=== PATIENT | male | born 1950 | race Caucasian/White ===

== ENCOUNTER → 2017-08-31 | Outpatient (CLI) | payer OTHER | END | disposition home or self-care (01) | LOC: RADUSWWP 07:30 | DX: E80.7 Disorder of bilirubin metabolism, unspecified (principal); Z53.9 Procedure and treatment not carried out, unspecified reason ==

== ENCOUNTER → 2017-09-09 | Outpatient (CLI) | payer OTHER ==
--- NOTE | 2017-09-09 08:06 | US ---
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 EXAM MEASUREMENTS: Liver Length: 15.4 cm Gallbladder Wall: 0.2 cm CBD: 0.3 cm Right Kidney: 11.7 x 4.7 x 5.1 cm Extensive overlying midline bowel gas. Pancreas: Obscured by bowel gas Liver: portions of left lobe obscured by overlying bowel gas . Visualized portions appear homogeneou s in echotexture. Gallbladder: fundal portion partially obscured by overlying bowel gas, wnl as visualized Evidence for sonographic Garcia's sign: no CBD: wnl Right Kidney: wnl IMPRESSION: Exam is partially limited by overlying bowel gas. No sonographic evidence of cholelithias is or acute cholecystitis. No hydronephrosis or nephrolithiasis.
== END | disposition home or self-care (01) ==
LOC: RADUSWWP 06:45
DX: E80.7 Disorder of bilirubin metabolism, unspecified (principal)
CPT/HCPCS: 76705

== ENCOUNTER 2018-07-28 10:53 | Day surgery (SDC) | payer MEDICARE, OTHER ==
[2018-07-25 15:03] VITALS: BMI 27.1
[~2018-07-28 10:53] MED LIST: ALPRAZolam 0.25 MG TAB PO PRN; ALPRAZolam 0.5 MG TAB PO PRN; ASPIRIN 325 MG TAB PO STA; ATORVASTATIN 80 MG TAB PO STA; NITROGLYCERIN SL TABS 0.4 MG TAB SUBLINGUAL PRN; SODIUM CHLORIDE 0.9% 1,000 ML in EMPTY BAG 1 BAG IV ONE
[2018-07-28 11:44] LABS: Basophils # (A) 0.1 k/uL (0-0.2); Basophils % (A) 1 %; Eosinophils # (A) 0.3 k/uL (0-0.7); Eosinophils % (A) 3 %; HCT 48.7 % (39.0-53.0); HGB 16.3 gm/dL (13.0-17.5); Lymphocytes # (A) 1.8 k/uL (1.0-4.8); Lymphocytes % (A) 19 %; MCH 30.2 pg (25.0-35.0); MCHC 33.5 g/dL (31.0-37.0); MCV 90.2 fL (80.0-100.0); Monocytes # (A) 0.7 k/uL (0-1.0); Monocytes % (A) 7 %; Neutrophils # (A) 6.3 k/uL (1.3-7.7); Neutrophils % (A) 68 %; Platelet Count 316 k/uL (150-450); RDW 13.9 % (11.5-15.5); WBC 9.3 k/uL (3.8-10.6)
[2018-07-28 11:51] LABS: Anion Gap 12 mmol/L; Blood Urea Nitrogen 17 mg/dL (9-20); Calcium 9.4 mg/dL (8.4-10.2); Carbon Dioxide 24 mmol/L (22-30); Chloride 104 mmol/L (98-107); Glucose 97 mg/dL (74-99); Sodium 140 mmol/L (137-145)
[2018-07-28 12:03] LABS: Potassium 5.2 mmol/L (3.5-5.1)
[2018-07-28] MEDS ORDERED: fentaNYL (PF) 50 MCG/ML 2 ML AMP IV ONE (12:20)
[2018-07-28] MEDS ORDERED: LIDOCAINE 1% INJ 10MG/ML (20 ML MDV) SQ ONE (12:21)
[2018-07-28] MEDS ORDERED: VERAPAMIL SYRINGE (5 MG/10 ML) INTRAARTER ONE (12:23)
[2018-07-28] MEDS ORDERED: BIVALIRUDIN BOLUS 250 MG/50 ML IV ONE (12:35)
[2018-07-28] MEDS ORDERED: BIVALIRUDIN 250 MG in SODIUM CHLORIDE 0.9% 50 ML IV ONE (12:36)
[2018-07-28] MEDS ORDERED: CLOPIDOGREL 75 MG TAB PO ONE (12:40)
[2018-07-28] MEDS ORDERED: IOPAMIDOL-370 100ML BTL INJ ONE (12:54)
[2018-07-28] MEDS ORDERED: IOPAMIDOL-370 50ML BTL INJ ONE (12:54)
[2018-07-28] MEDS ORDERED: NITROGLYCERIN SL TABS 0.4 MG TAB SUBLINGUAL PRN (13:16)
[2018-07-28] MEDS ORDERED: RX INFO: IV CONTRAST WAS GIVEN 1 EACH MISC MISCELLANE PRN (13:16)
[2018-07-28] MEDS ORDERED: ATROPINE SULFATE 0.1 MG/ML 10ML SYRINGE IV PRN (13:16)
[2018-07-28] MEDS ORDERED: ZOLPIDEM 5 MG TAB PO PRN (13:16)
[2018-07-28] MEDS ORDERED: MAG HYDROX/AL HYDROX/SIMETH 30 ML CUP PO PRN (13:16)
[2018-07-28] MEDS ORDERED: SODIUM CHLORIDE 0.9% 1,000 ML IV SCH (13:30)
--- NOTE | 2018-07-28 19:02 | CC ---
CARDIAC CATHETERIZATION REPORT Mr. Boss is a 68-year-old male with a known history of coronary artery disease who recently had evidence of stress-induced ischemia on his nuclear scan. In view of that, recommendation made regarding cardiac catheterization. The procedures, risks and complication were discussed with the patient who is in full understanding and agreement. PROCEDURE: Patient was brought to optical laboratory technician in a fasting state after receiving fentanyl and Benadryl and achieving moderate conscious sedated state using 2nd Xylocaine anesthesia and Seldinger technique, a 6-Zimbabwean sheath was introduced in the right radial artery. Selective right and left coronary angiography was performed using 5-Zimbabwean 3 and half bend right and left Eren catheter. Multiple views of the coronary artery including hemiaxial views obtained. Following that, angioplasty and stenting was performed from that 5-Zimbabwean tight pigtail catheter was introduced in the left ventricle and a 30 degree WU view of the left ventricle was obtained. Following that, catheter and sheath were removed. Hemostasis was obtained with deployment of a TR band. There was no immediate complication. The patient is returned to his room in stable condition. Of note, the patient received intra-arterial verapamil as well as Angiomax per protocol. FINDINGS: LEFT MAIN: This is a large-sized vessel bifurcating left circumflex, left anterior descending artery, left main coronary artery has no evidence of high-grade stenosis. LEFT ANTERIOR DESCENDING ARTERY this is a large-sized vessel reaching to the apex with a wraparound apex segment giving rise to a diagonal branch of moderate caliber. The left anterior descending artery in the proximal segment has a 40% plaque. The rest of the vessel has no high-grade stenosis. LEFT CIRCUMFLEX: This is a nondominant small vessel giving rise to 3 small obtuse marginal branches. The left circumflex has mild intimal disease proximally of 20% to 30% without any evidence of high-grade stenosis. RIGHT CORONARY ARTERY: This is a large dominant vessel bifurcating distally PDA and posterolateral segment and branches. The right coronary artery after the takeoff of the acute marginal branch has a 99% stenosis with slow flow in the distal vessel with collaterals from the left system. The stenosis is right distal to the prior stenting. LEFT VENTRICULOGRAM: Left ventriculogram was performed in 30 degree WU view and revealed normal left ventricular size and systolic function. Ejection fraction 60%. There was no significant mitral regurgitation. HEMODYNAMICS: There was no gradient across the aortic valve. The left ventricle end-diastolic pressure was 10-14 mmHg. CONCLUSION: 1. Critical stenosis involving the mid right coronary artery. 2. Moderate disease in the proximal left anterior descending artery with mild disease in the left circumflex. 3. Normal left ventricular size and systolic function. RECOMMENDATIONS: In view of findings and anatomy, I recommend proceeding with angioplasty and stenting of the right coronary artery. The procedure as well as risks and complications were discussed with the patient who are in full understanding and agreement. MMMED / MARIA R: [id number] / [place]
--- NOTE | 2018-07-28 19:10 | PTCA ---
PERCUTANEOUSTRANS CORORONARY ANGIOGRAPHY Mr. Molina is a 68-year-old male known history of coronary artery disease who had a recent abnormal myocardial perfusion imaging in the inferior wall. He has underwent stenting of the right coronary artery in the setting of a myocardial infarction in 2016. He underwent cardiac catheterization, was found to have a critical stenosis involving the right coronary artery distal the prior stenting. In view of that, recommendation was made regarding angioplasty and stenting. The procedure as well as risks and complication were discussed with the patient who is in full understanding and agreement. DESCRIPTION OF PROCEDURE: A 6-Estonian FR4 3.5 guiding catheter was introduced in the system. After cannulating the right coronary ostium a 0.014 balanced medium weight J-wire was advanced and positioned in the distal RCA. Following that, a 3.0 x 12 mm Trek balloon was advanced. One inflation at 8 atmospheres was done. Following that the balloon was removed and a 3.5 x 50 mm Xience Cathy stent was deployed and was dilated at 16 atmospheres. After the last inflation, after appropriate wait, the balloon and the guidewire were withdrawn back in the guiding catheter. Images were obtained repeated. Those images reveal stable successful stenting. At that point, the guiding catheter, the balloon and the guidewire were removed and left ventriculogram was performed. Following that, catheter and sheath were removed. Hemostasis was obtained with deployment of a TR band. There was no immediate complication. Patient was returned to his room in stable condition. Of note, the patient received Angiomax per protocol as well as oral loading dose of clopidogrel. He had no chest discomfort or significant EKG changes with the inflation. RESULTS: Successful stenting of the mid right coronary artery with reduction of stenosis from 99% to 0%. The patient has plaque in the PLV. RECOMMENDATION: Patient will be continued on aspirin, Plavix, beta blockers and statin. The importance of dual antiplatelet treatment were discussed with the patient and his family and they are in full understanding and agreement. DURATION OF PROCEDURE: 38 minutes. MMODL / IJN: [id number] / MTDD
[2018-07-28] MEDS: METOPROLOL TARTRATE 25 MG TAB PO SCH (21:11)
[2018-07-28 22:13] VITALS: RESP 18
[2018-07-29 07:55] LABS: Anion Gap 9 mmol/L; Blood Urea Nitrogen 14 mg/dL (9-20); Calcium 9.2 mg/dL (8.4-10.2); Carbon Dioxide 23 mmol/L (22-30); Chloride 107 mmol/L (98-107); Glucose 102 mg/dL (74-99); Potassium 4.2 mmol/L (3.5-5.1); Sodium 139 mmol/L (137-145)
--- NOTE | 2018-07-29 08:03 | PN ---
PROGRESS NOTE Mr. Molina is a 68-year-old male with known history of coronary artery disease, status post stenting of the RCA in 2016 who had an abnormal myocardial perfusion imaging, underwent cardiac catheterization, was found to have critical stenosis involving the RCA and underwent stenting of that vessel. He is doing well this morning. His breathing is stable. He is denying any chest pain. No dizziness. No palpitation. No nausea. He continued to be on aspirin once a day, Lipitor 40 mg daily, Plavix 75 mg daily, metoprolol tartrate 25 mg twice a day. PHYSICAL EXAMINATION: Blood pressure 130/70 with the heart rate in the 70s. LUNGS: Clear. HEART: Regular rate and rhythm. S1, S2. No S3. No rub. ABDOMEN: Soft, nontender. EXTREMITIES: No edema. Right radial pulse intact. EKG revealed no acute changes. LAB DATA: Lab data revealed BUN and creatinine 17 and 0.69. Hemoglobin of 16.3. IMPRESSION: 1. Status post stenting of the RCA. 2. Hyperlipidemia. RECOMMENDATION: Patient will be discharged home today and followed in 1 week. MMODL / IJN: [id number] /
[2018-07-29 08:10] VITALS: BP 133/72; PULSE 78; TEMP 98.4
[2018-07-29] MEDS: METOPROLOL TARTRATE 25 MG TAB PO SCH (08:40)
[2018-07-29] MEDS ORDERED: ASPIRIN 81 MG PO SCH (09:00)
[2018-07-29] MEDS ORDERED: CLOPIDOGREL 75 MG TAB PO SCH (12:00)
[2018-07-29] MEDS ORDERED: ATORVASTATIN 40 MG TAB PO SCH (21:00)
== END 2018-07-29 09:29 | disposition home or self-care (01) ==
LOC: CATHCVL 10:53 → 3SCARD 12:57 → CATHCVL 07-29 09:29
PROVIDERS: ATTEND Internal Medicine Interventional Cardiology
DX: I25.10 Atherosclerotic heart disease of native coronary artery without angina pectoris (principal); Z72.0 Tobacco use; E78.2 Mixed hyperlipidemia; Z82.49 Family history of ischemic heart disease and other diseases of the circulatory system; Z95.5 Presence of coronary angioplasty implant and graft; Z79.82 Long term (current) use of aspirin; Z79.899 Other long term (current) drug therapy
CPT/HCPCS: 93458; 85347; 80048 ×2; 85025; C9600; C1894; C1725; C1769; C1874; J2001; J3010; J0583; Q9967 ×2